=== PATIENT | female | born 1955 | race American Indian/Alaskan Native ===

== ENCOUNTER 2016-07-16 10:28 | Outpatient (CLI) | payer MEDICAID ==
--- NOTE | 2016-07-19 08:00 | Vascular Lab Report ---
Right LOWER EXTREMITY ARTERIAL DUPLEX: REASON FOR EXAM: Right leg claudication. COMMENTS ON THE RIGHT: Triphasic waveforms are seen proximally. Biphasic waveforms are seen distally. No significant velocity gradients are identified. No focal significant plaque is identified. Findings are consistent with normal perfusion. Findings are consistent with the ability to heal distal wounds. IMPRESSION: RIGHT: Essentially normal arterial flow.
--- NOTE | 2016-07-19 08:03 | Vascular Lab Report ---
LOWER EXTREMITY ARTERIAL PHYSIOLOGIC STUDY: REASON FOR EXAM: Peripheral arterial disease. COMMENTS ON THE RIGHT: Ankle brachial index is 0.94. This value is slightly decreased. Toe brachial index is 0.93. This value is normal. Wound healing is likely. Pulse volume recording at the level of the ankle is normal. Exercise testing showed normal response to exercise with no significant ischemia. COMMENTS ON THE LEFT: Ankle brachial index is 1.06. This value is normal. Toe brachial index is 0.94. This value is normal. Wound healing is likely. Pulse volume recording at the level of the ankle is normal. Exercise testing showed normal response to exercise with no evidence of ischemia. IMPRESSION: RIGHT: Very mild peripheral vascular disease at rest without worsening with exercise LEFT:No hemodynamically significant arterial disease at rest or with exercise.
== END 2016-07-16 10:29 | disposition home or self-care (01) ==
LOC: VAS 10:28
PROVIDERS: ATTEND Internal Medicine
DX: I73.9 Peripheral vascular disease, unspecified (principal); M79.661 Pain in right lower leg
CPT/HCPCS: 93922